=== PATIENT | male | born 1975 | race Caucasian/White ===

== ENCOUNTER 2019-02-01 12:01 | Emergency (ER) | payer OTHER ==
[~2019-02-01] VITALS: Ht 182.9 cm; Wt 75.3 kg
[2019-02-01] MEDS ORDERED: OXYCODONE HCL15 MG PO (12:16)
[2019-02-01] MEDS ORDERED: ZESTORETIC 20-1 EAC1 PO (12:16)
[2019-02-01] MEDS ORDERED: SERTRALINE HCL50 MG PO (12:17)
[2019-02-01] MEDS ORDERED: ZOLOFT25 MG PO (12:17)
[2019-02-01] MEDS ORDERED: APAP650 PO (12:18)
[2019-02-01 12:36] LABS: ABSOLUTE NEUTROPHILS 6.5 thou/uL (1.4-8.2); BASOPHILS 0.7 % (0.0-2.0); EOSINOPHILS 0.9 % (0.0-3.0); HEMATOCRIT 38.4 % (42.0-52.0); LYMPHOCYTES 11.7 % (24.0-44.0); MCH 28.6 pg (26.0-34.0); MCHC 33.8 g/dL (28.0-37.0); MCV 84.7 fL (80.0-100.0); PLATELET COUNT 305 thou/uL (150-400); POLYS 82.7 % (36.0-66.0); RBC 4.53 mil/uL (4.50-6.00); RDW 15.8 % (10.5-14.5); WBC 7.8 thou/uL (4.0-11.0)
[2019-02-01 12:46] LABS: URINE BILIRUBIN NEGATIVE (Negative); URINE BLOOD NEGATIVE (Negative); URINE CLARITY CLEAR; URINE COLOR YELLOW; URINE GLUCOSE-RANDOM* NEGATIVE (Negative); URINE KETONES NEGATIVE (Negative); URINE LEUKOCYTES-REFLEX NEGATIVE (Negative); URINE NITRITE-REFLEX NEGATIVE (Negative); URINE PROTEIN (DIPSTICK) NEGATIVE (Negative); URINE SPECIFIC GRAVITY 1.015 (1.005-1.035); URINE UROBILINOGEN 0.2 E.U./dl (0.2-1.0)
[2019-02-01 12:55] LABS: ALBUMIN 3.6 g/dL (3.4-5.0); ANION GAP 14 mmol/L (7-16); BUN 8 mg/dL (7-18); CALCIUM 9.2 mg/dL (8.5-10.1); CHLORIDE 98 mmol/L (98-107); CO2 27 mmol/L (21-32); CREATININE 1.1 mg/dL (0.7-1.3); GLUCOSE 122 mg/dL (74-106); MAGNESIUM 2.1 mg/dL (1.8-2.4); PHOSPHORUS 1.2 mg/dL (2.5-4.9); SGOT 26 U/L (15-37); SGPT 31 U/L (30-65); SODIUM 139 mmol/L (136-145); TOTAL BILIRUBIN 0.2 mg/dL (<0.1-1.0); TOTAL PROTEIN 7.4 g/dL (6.4-8.2); TROPONIN-I <0.06 ng/mL (<0.06)
[2019-02-01 13:00] LABS: POTASSIUM 2.7 mmol/L (3.5-5.1)
[2019-02-01 13:03] LABS: AMP/METHAMP Negative (Negative); BARBITURATES Negative (Negative); BENZODIAZEPINES Negative (Negative); COCAINE Negative (Negative); METHADONE Negative (Negative); OPIATES Negative (Negative); PCP Negative (Negative)
[2019-02-01] MEDS ORDERED: LISINOPRIL20 MG PO (13:27)
[2019-02-01] MEDS ORDERED: ZOLOFT50 MG PO (13:27)
[2019-02-01] MEDS ORDERED: K-PHOS ORIGINA500 MG PO (13:27)
[2019-02-01 14:10] VITALS: BP 147/92
--- NOTE | 2019-02-02 18:39 | EKG ---
[address] [place] [address] ELECTROCARDIOGRAM REPORT Name: SHAWN ALBERT Room #: DEP Vitor#: [id number] ������������������ Admission: 02/01/19 ������������������ Attend Phys: Discharge: 02/01/19 ������������������ Date of : 75 Report #: [id number] ����������������������������������������������������������������� [id number] THIS REPORT FOR: //name// [facility] ED Test Date: 2019-02-01 Test Time: 12:18:41 Pat Name: SHAWN ALBERT Department: Room: Gender: M [employer]: : 1975 Requested By: Ricardo Escalera Order Number: [id number] MD: Hans Umaña Measurements Intervals [place] Rate: 99 P: 35 CA: 151 QRS: -7 QRSD: 90 T: 106 QT: 347 QTc: 446 Interpretive Statements Sinus rhythm 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
== END 2019-02-01 14:11 | disposition left against medical advice (07) ==
LOC: ER 12:01
PROVIDERS: Emergency Medicine
DX: E87.6 Hypokalemia (principal); E83.39 Other disorders of phosphorus metabolism; I10 Essential (primary) hypertension; Z88.6 Allergy status to analgesic agent; Z88.8 Allergy status to other drugs, medicaments and biological substances; Z91.14 Patient's other noncompliance with medication regimen